=== PATIENT | male | born 1960 | race Caucasian/White ===

== ENCOUNTER 2017-05-11 12:53 | Emergency (ER) | payer BC, OTHER ==
[~2017-05-11] VITALS: Ht 180.3 cm; Wt 110.0 kg
[~2017-05-11 12:53] MED LIST: ATV/1 PO; HYDR50TA3 PO; LISI10TA PO; MCRK20 PO; OMEP20CA9 PO
[2017-05-11 12:54] VITALS: TEMP 36.3; Ht 180.3 cm; Wt 110.0 kg
[2017-05-11] MEDS ORDERED: VLT/75 PO (13:39)
--- NOTE | 2017-05-11 14:03 | DIAGNOSTIC IMAGING REPORT ---
RIGHT KNEE 3 VIEWS CLINICAL HISTORY: Right knee pain. Fall. FINDINGS: AP, crosstable lateral, and sunrise views of the right knee are obtained. No prior studies are available for comparison at the time of dictation. The skeletal structures are well mineralized. No fracture is seen. The joint spaces of the knee are well-maintained. Mild degenerative beaking is noted in the tibial spine. A small joint effusion is identified. Prepatellar soft tissue swelling is observed. IMPRESSION: Prepatellar soft tissue swelling and joint effusion. No right knee fracture is seen. Electronically signed by: Kevin Quinones M.D. 05/11/2017 2:02 PM Dictated Date/Time: 05/11/2017 2:01 PM
[2017-05-11 15:14] VITALS: BP 156/77; PULSE 78; O2SAT 99
--- NOTE | 2017-05-11 20:19 | EMERGENCY ROOM VISIT NOTE ---
ED Visit Note First contact with patient: 13:00 Chief Complaint: I fell and hurt my right knee. History of Present Illness: Mr. Anglin is a 56-year-old white male who ambulates into the ED complaining of right knee pain. Historically patient reports he has bilateral knee arthritis and receives injections of steroids into his knees for his arthritis. His last injection was approximately [address] Meier. Patient reports he was walking down carpeted steps yesterday and tripped. When he tripped his knee was hyperflexed and he fell to the floor. He reports in the process he did feel a popping sensation. He reports he was able to get himself up and go to work yesterday. He reports before the fall there was no lightheadedness or dizziness, the time of the fall he did not strike his head and since the injury he has not had any signs of head injury. Currently he is complaining of pain over the medial and anterior aspect of the right knee. He describes it as a constant throbbing sensation that is intermittently sharp. He rates his discomfort 9/10. The pain is nonradiating. The pain worsens with ambulation, flexion beyond 80 and palpation over the anterior medial aspects of the knee. He has not identified any alleviating factors related to the pain. He has taken his prescribed diclofenac without relief of his discomfort. Associated with his pain patient does report he feels when he flexes his knee he feels a clicking sensation. He denies any associated symptoms including back pain, hip pain, thigh pain, lower leg pain, ankle or foot pain, leg weakness/numbness/tingling, knee locking. Review of Systems: As noted above in history of present illness. Past Medical History: Hypertension, bronchitis, status post cervical and lumbar back surgery. Current Medications: Lisinopril, Ativan, hydrochlorothiazide, Prilosec, potassium chloride, diclofenac. Allergies to Medications: Patient denies. Social History: Patient is currently employed; he feels safe in his home environment; he admits to tobacco use and denies alcohol use. Physical Examination: Vital Signs: Date Time Temp Pulse Resp B/P (MAP) Pulse Ox O2 Delivery O2 Flow Rate FiO2 05/11/17 15:14 78 18 156/77 99 05/11/17 15:12 66 18 147/87 96 Room Air 05/11/17 12:54 36.3 73 18 172/82 99 Room Air GENERAL: 56-year-old male in mild to moderate distress due to pain, nontoxic- appearing, afebrile and hemodynamically stable. NEUROLOGICAL: Awake, alert and oriented to person, place and time. Answering questions appropriately and following commands. SKIN: Warm, dry and pink. No soft tissue trauma noted. BACK: No tenderness over the bony lumbar spine. No CVA tenderness. RIGHT LOWER EXTREMITY: No gross bony deformity. No shortening or malrotation. No tenderness over the hip, thigh, lower leg, ankle or foot. Mild tenderness over the prepatellar area predominately over the anterior tibia with moderate swelling. There is also mild tenderness over the medial joint line with no severe swelling in this area negative bounce test. Negative patellar apprehension test. Susana test negative. No collateral or cruciate ligament laxity. Decreased range of motion to only approximately 80 of flexion but he does able to reach full extension and hyperextension. I attempted to evaluate the meniscus but with his swelling and pain was unsuccessful. With the niece stabilize she has full range of motion in the level of the ankles and toes. Distal neurovascular statuses are intact and equal bilaterally. ED Course: Patient is assessed as noted above. Patient's medication list was reviewed. Patient is given ice for pain and comfort; he refused pain medications. Right Knee X-Rays: Were read by myself and the radiologist showing no acute fractures or dislocations. Mild degenerative beaking of the tibial spine, small joint effusion and prepatellar soft tissue swelling was noted. Patient was placed in a knee immobilizer; he reports he had nonweightbearing crutches at home. Patient was educated about today's findings and instructed on his treatment plan ; he verbalizes understanding and agreement with this plan. Clinical Impression: Right knee pain. Status post fall. Patient's blood pressure: Elevated. Blood pressure disposition: Situational. Disposition: Patient discharged home in stable condition; prior to departure he was reassessed and subjectively reported he was feeling much better and rated his discomfort 3/10. Plan: Comfort measures were discussed with the patient including rest, ice, splint and crutch use and a sliding pain medication scale of ibuprofen, acetaminophen and [place]; his name was checked in the state database and no red flags were noted and he was given appropriate narcotic precautions. Patient is encouraged to follow-up with his orthopedist Dr. Meier for definitive care and treatment. Patient is encouraged return ED for worsening/uncontrolled pain, uncontrolled swelling, leg weakness/numbness/tingling or any new/concerning symptoms.
== END 2017-05-11 15:16 | disposition home or self-care (01) ==
LOC: C.EDB 12:54 → C.EDD 15:16
DX: M25.561 Pain in right knee (principal); W01.0XXA Fall on same level from slipping, tripping and stumbling without subsequent striking against object, initial encounter; Y92.9 Unspecified place or not applicable; I10 Essential (primary) hypertension; Z79.899 Other long term (current) drug therapy; Z72.0 Tobacco use

== ENCOUNTER → 2017-09-06 | Outpatient (CLI) | payer BC ==
[~2017-09-06] MED LIST changes: +VLT/75 PO
== END | disposition home or self-care (01) ==
LOC: C.LABPBG 15:50
PROVIDERS: ATTEND Urology
DX: N40.1 Benign prostatic hyperplasia with lower urinary tract symptoms (principal); R97.20 Elevated prostate specific antigen [PSA]

== ENCOUNTER 2020-09-19 17:16 | Inpatient (IN) ==
[2020-09-19] MEDS ORDERED: SODIUM CHLORIDE 0.9% 1000ML 1,000 ML IV ONE (18:48)
[2020-09-19] MEDS ORDERED: ACETAMINOPHEN 1,000 MG/100 ML VIAL IV STA (18:48)
[2020-09-19] MEDS ORDERED: ONDANSETRON INJ 2 MG/ML 2 ML VIAL IV STA (18:48)
--- NOTE | 2020-09-19 18:53 | Emergency Department Note ---
History of Present Illness General Chief complaint: Shortness of Breath/Dyspnea Stated complaint: COV + ON 09/16, DYSPNEA Time Seen by Provider: 09/19/20 18:21 Source: patient Mode of arrival: ambulatory Limitations: no limitations History of Present Illness Provider complaint: COVID, multiple symptoms Onset (ago): day(s) Maximum Pain Intensity: 3 Relieved By: + none Exacerbated By: + none Associated symptoms: + cough, + fever/chills, + headaches, + loss of appetite, + malaise, + nausea/vomiting, + shortness of breath and + weakness Treatments prior to arrival: none This is a 59-year-old male presents the emergency department with multiple complaints and recent outpatient positive Covid swab. Patient states symptoms started over the weekend, he was swabbed on Wednesday, and was called that his test was positive on Wednesday. Patient states he has headaches, myalgias, arthralgias, cough, diarrhea, shortness of breath, mild chest pain. Patient states he is taking Tylenol. States he is drinking plenty of water though he has no appetite. Patient also states he has had loss of taste and smell. Patient states he is very fatigued. Uncertain where he acquired it. Patient states after his PCP contacted him that he was positive, he was scheduled to have monoclonal antibody infusion tomorrow here at the hospital. Patient states he is a "patient partner smoker". Pt seen during a time of high acuity and national emergency pandemic while wearing PPE. Swabbed Wednesday, positive Wednesday Home Medications Medication Instructions Recorded Confirmed Type cetirizine 10 mg capsule 10 mg PO DAILY PRN #90 cap 11/09/19 09/19/20 Rx tramadol 50 - 100 mg PO Q6H PRN #20 tab 04/10/20 09/19/20 Rx dutasteride 0.5 mg capsule 0.5 mg PO DAILY #90 cap 08/26/20 09/19/20 Rx amlodipine 5 mg tablet 5 mg PO QAM #90 tab 08/27/20 09/19/20 Rx lisinopril 10 mg tablet 10 mg PO QAM #90 tab 08/27/20 09/19/20 Rx omeprazole 20 mg capsule,delayed 20 mg PO QAM #90 cap 08/27/20 09/19/20 Rx release lorazepam 1 mg tablet 1 mg PO HS #7 tab 09/02/20 09/19/20 Rx amoxicillin 875 mg-potassium 1 tab PO Q12H 10 Days #20 tab 09/16/20 09/19/20 Rx clavulanate 125 mg tablet Allergies Allergy/AdvReac Type Severity Reaction Status Date / Time No Known Allergies Allergy Verified 09/19/20 19:20 Past Med/Surg History Medical History (Updated 09/21/20 @ 20:12 by Yulissa Roberson DO) Allergic rhinitis Anxiety Degenerative disc disease GERD (gastroesophageal reflux disease) History of gout History of prostate cancer under surveillance-dr. ludwig HTN (hypertension) Obesity Surgical History H/O umbilical hernia repair Umbilical hernia repair. Dr. Baxter 05-29-19 History of cervical spinal surgery "ROM WNL" per RN phone interview History of colonoscopy History of laminectomy LUMBAR History of prostate biopsy X 2 History of right inguinal hernia repair History of tonsillectomy Family History Father Prostate cancer Cancer Hypertension Mother Hypertension Family hx of colon cancer Family history of diabetes mellitus Denies family history of Ovarian cancer Myocardial infarction Breast cancer Colorectal cancer Social History Smoking Status: Current some day smoker Age Started Using Tobacco: 25; Cigarettes Per Day: OCCASIONAL CIGARETTES; Second Hand Exposure: No; Hx Alcohol Use: Yes Alcohol type: beer Hx Substance Use: No Preferred Language: Chadian Communication Ability: Effective Visual Impairment: No Limitations Hearing Ability: Normal Chip Bin Operator Required: No Beliefs That Will Affect Care: None marital status: Current Living Situation: Spouse current occupational status: employed current occupation: [employer] Feels Safe at Home: Yes Childhood Exposure to Second-Hand Smoke: No Dental Care, Regularly: Yes Physical Activity Frequency: 3-4 Times per Week Seatbelt Use: always Sunscreen Use: Yes Assistive Devices: Oxygen - Continuous Review of Systems See HPI for pertinent positives & negatives. and A total of 10 systems reviewed and were otherwise negative Physical Exam Vital Signs Vital Signs - 24 hr 09/19/20 17:27 Temperature 36.8 C Temperature Source Temporal Artery Scan Pulse Rate 92 H Pulse Rhythm Regular Respiratory Rate 23 Respiratory Effort / Characteristics Short of Breath Blood Pressure 151/98 H Blood Pressure Mean 115 Pulse Oximetry 97 Oxygen Delivery Method Room Air Sepsis Recent Fever Within 48 Hours No Sepsis New/Unexplained Change in Mental Status No Sepsis Action Taken by Nursing No Action Required GENERAL: alert, ill appearing, well nourished, no distress, non-toxic, obese EYE EXAM: normal conjunctiva, PERRL and EOM's grossly intact OROPHARYNX: no exudate, no erythema, lips, buccal mucosa, and tongue normal and mucous membranes are moist NECK: supple, no nuchal rigidity, no adenopathy, non-tender LUNGS: Clear but diminished to auscultation. Normal chest wall mechanics, no w/r/r HEART: no murmurs, S1 normal and S2 normal ABDOMEN: abdomen soft, non-tender, normo-active bowel sounds, no masses, no rebound or guarding. BACK: Back is symmetrical on inspection and there is no deformity, no midline tenderness, no CVA tenderness. SKIN: no rashes and no bruising UPPER EXTREMITIES: upper extremities are grossly normal. FROM, nml pulses b/l. LOWER EXTREMITIES: No pitting edema. FROM, nml pulses b/l. NEURO EXAM: Normal sensorium, cranial nerves II-XII grossly intact, normal speech, no gross weakness of arms, no gross weakness of legs. Gross sensation intact. Course Course 2045: Pt receiving monoclonal antibody infusion. 2134: Pt was noted to be mildly hypoxic at rest and placed on NC. Nursing staff noted that while on NC at rest, he will periodically desat. 2235: Discussed all results with patient. Discussed with him concern over hypoxia at rest. Other VS stable. 2335: Discussed with Dr. Romero. Administered Medications Acetaminophen (Acetaminophen 325 Mg Tab) 650 mg PO Q4H PRN PRN Reason: Pain or Fever Stop: 10/20/20 02:00 Last Admin: 09/20/20 05:38 Dose: 650 mg Documented by: [id number] Amlodipine Besylate (Amlodipine Besylate 5 Mg Tab) 5 mg PO QAM GERRY Stop: 10/20/20 08:59 Last Admin: 09/21/20 08:34 Dose: 5 mg Documented by: [id number] Admin: 09/20/20 08:19 Dose: 5 mg Documented by: [id number] Enoxaparin Sodium (Enoxaparin 80 Mg/0.8 Ml Syr) 70 mg SQ Q12 GERRY Stop: 10/20/20 08:59 Last Admin: 09/21/20 08:33 Dose: 70 mg Documented by: [id number] Admin: 09/20/20 21:01 Dose: 70 mg Documented by: [id number] Admin: 09/20/20 08:21 Dose: 70 mg Documented by: [id number] Azithromycin 500 mg/ Dextrose 255 mls @ 125 mls/hr IV DAILY GERRY Stop: 09/27/20 08:59 Last Infusion: 09/21/20 10:37 Dose: 0 mls/hr Documented by: [id number] Admin: 09/21/20 08:32 Dose: 125 mls/hr Documented by: [id number] Infusion: 09/20/20 10:30 Dose: 0 mls/hr Documented by: [id number] Admin: 09/20/20 08:22 Dose: 125 mls/hr Documented by: [id number] Dexamethasone 6 mg/ Syringe 1.5 mls @ 1 mls/min IV Q12H GERRY Stop: 10/20/20 11:59 Last Admin: 09/21/20 11:41 Dose: 1 mls/min Documented by: [id number] Admin: 09/20/20 23:52 Dose: 1 mls/min Documented by: [id number] Admin: 09/20/20 11:36 Dose: 1 mls/min Documented by: [id number] Remdesivir 100 mg/ Sodium (Chloride) 250 mls @ 250 mls/hr IV Q24H GERRY; Protocol Stop: 09/24/20 12:59 Last Infusion: 09/21/20 12:50 Dose: 0 mls/hr Documented by: [id number] Admin: 09/21/20 11:41 Dose: 250 mls/hr Documented by: [id number] Lisinopril (Lisinopril 10 Mg Tab) 10 mg PO QAM GERRY Stop: 10/20/20 08:59 Last Admin: 09/21/20 08:37 Dose: 10 mg Documented by: [id number] Admin: 09/20/20 08:17 Dose: 10 mg Documented by: [id number] Miscellaneous (Avodart~Order Awaiting Action) 1 ea N/A QS GERRY Stop: 10/20/20 07:59 Last Admin: 09/21/20 15:21 Dose: Not Given Documented by: [id number] Admin: 09/21/20 08:38 Dose: Not Given Documented by: [id number] Admin: 09/20/20 23:13 Dose: Not Given Documented by: [id number] Admin: 09/20/20 15:54 Dose: Not Given Documented by: [id number] Admin: 09/20/20 08:25 Dose: Not Given Documented by: [id number] Pantoprazole Sodium (Pantoprazole 40 Mg Tab) [facility] [place] Stop: 10/20/20 08:59 Last Admin: 09/21/20 08:34 Dose: 40 mg Documented by: [id number] Admin: 09/20/20 08:17 Dose: 40 mg Documented by: [id number] Sodium Chloride (Sodium Chloride 0.9% 10ml Flush) 30 ml IV Q24H [facility] Stop: 09/24/20 12:01 Last Admin: 09/21/20 11:42 Dose: 30 ml Documented by: [id number] Vitamin D (Cholecalciferol 1,000 Units 25 Mcg Tab) 5,000 units PO [facility] Stop: 10/20/20 08:59 Last Admin: 09/21/20 08:35 Dose: 5,000 units Documented by: [id number] Admin: 09/20/20 08:18 Dose: 5,000 units Documented by: [id number] Zinc Sulfate (Zinc Sulfate 220 Mg Capsule) 220 mg PO [facility] Stop: 10/20/20 08:59 Last Admin: 09/21/20 08:34 Dose: 220 mg Documented by: [id number] Admin: 09/20/20 08:17 Dose: 220 mg Documented by: [id number] Discontinued Medications Albuterol (Albut/Ipratrop 3mg/0.5mg Neb 3 Ml Vial) 3 ml NEB NOW STA Stop: 09/19/20 20:57 Last Admin: 09/19/20 21:23 Dose: 3 ml Documented by: [id number] Albuterol (Albuterol Hfa 8 Gm Inhaler) 2 puffs INH QIDR [facility] Stop: 10/20/20 06:59 Last Admin: 09/20/20 07:57 Dose: 2 puffs Documented by: [id number] Dexamethasone (Dexamethasone Sod Inj 4 Mg/Ml Vial) 6 mg IV NOW STA Stop: 09/19/20 23:03 Last Admin: 09/20/20 00:05 Dose: 6 mg Documented by: [id number] Diphenhydramine HCl (Diphenhydramine 50 Mg/Ml Vial) 50 mg IV NOW STA Stop: 09/20/20 00:28 Last Admin: 09/20/20 00:47 Dose: 50 mg Documented by: [id number] Sodium Chloride (Nss 1000ml) 1,000 mls @ 999 mls/hr IV .Q1H1M ONE Stop: 09/19/20 19:48 Last Infusion: 09/19/20 20:51 Dose: 0 mls/hr Documented by: [id number] Admin: 09/19/20 19:48 Dose: 999 mls/hr Documented by: [id number] Acetaminophen (Ofirmev) 1,000 mg in 100 mls @ 400 mls/hr IV NOW STA Stop: 09/19/20 19:02 Last Infusion: 09/19/20 20:37 Dose: 0 mls/hr Documented by: [id number] Admin: 09/19/20 19:48 Dose: 400 mls/hr Documented by: [id number] Casirivimab 1,200 mg/Imdevimab 1,200 mg/ Sodium Chloride 120 mls @ 310 mls/hr IV ONCE ONE; Protocol Stop: 09/19/20 20:48 Last Infusion: 09/19/20 21:13 Dose: 0 mls/hr Documented by: [id number] Admin: 09/19/20 20:37 Dose: 310 mls/hr Documented by: [id number] Famotidine (Pepcid 20mg Iv Push) 20 mg in 5 mls @ 2.5 mls/min IV NOW STA Stop: 09/20/20 00:28 Last Admin: 09/20/20 00:47 Dose: 2.5 mls/min Documented by: [id number] Dexamethasone 4 mg/ Syringe 1 mls @ 1 mls/min IV NOW STA Stop: 09/20/20 00:41 Last Admin: 09/20/20 00:53 Dose: 1 mls/min Documented by: [id number] Potassium Chloride/Sodium Chloride (Normal Saline W/20 Meq Kcl) 20 meq in 1,000 mls @ 100 mls/hr IV .Q10H GRERY Stop: 10/20/20 02:00 Last Infusion: 09/20/20 19:53 Dose: 0 mls/hr Documented by: [id number] Admin: 09/20/20 11:36 Dose: 100 mls/hr Documented by: [id number] Infusion: 09/20/20 11:36 Dose: 100 mls/hr Documented by: [id number] Infusion: 09/20/20 05:00 Dose: 100 mls/hr Documented by: [id number] Infusion: 09/20/20 02:42 Dose: 0 mls/hr Documented by: [id number] Admin: 09/20/20 02:41 Dose: 100 mls/hr Documented by: [id number] Remdesivir 200 mg/ Sodium (Chloride) 250 mls @ 125 mls/hr IV ONE ONE; Protocol Stop: 09/20/20 04:29 Last Infusion: 09/20/20 04:41 Dose: 0 mls/hr Documented by: [id number] Admin: 09/20/20 02:41 Dose: 125 mls/hr Documented by: [id number] Lorazepam (Lorazepam 1 Mg Tab) 1 mg PO HS GERRY Stop: 10/20/20 20:59 Last Admin: 09/20/20 21:08 Dose: 1 mg Documented by: [id number] Lorazepam (Lorazepam 1 Mg Tab) 1 mg PO NOW STA Stop: 09/20/20 11:22 Last Admin: 09/20/20 11:35 Dose: 1 mg Documented by: [id number] Miscellaneous (Stat Iv) 1 ea N/A NOW STA Stop: 09/19/20 19:56 Last Admin: 09/19/20 20:40 Dose: 1 ea Documented by: [id number] Ondansetron HCl (Ondansetron Inj 2 Mg/Ml 2 Ml Vial) 4 mg IV NOW STA Stop: 09/19/20 18:49 Last Admin: 09/19/20 19:48 Dose: 4 mg Documented by: [id number] Sodium Chloride (Sodium Chloride 0.9% 10ml Flush) 30 ml IV ONCE ONE Stop: 09/19/20 20:26 Last Admin: 09/19/20 21:13 Dose: 30 ml Documented by: [id number] Medical Decision Making Differential Diagnosis Differential Diagnosis includes but is not limited to dehydration, stroke, anemia, hypoglycemia, hyponatremia, hypernatremia, urinary tract infection, pneumonia, bronchitis, sepsis, gastroenteritis, additional abdominal pathology, metabolic abnormalities and infections. Medical Records Attestation: I reviewed the patient's medical records. Home Medications Current Medication List: was personally reviewed by me Laboratory Data Attestation: I reviewed the patient's lab results. Result diagrams: 09/21/20 07:26 09/21/20 07:26 Lab Results 09/19/20 09/19/20 09/19/20 Range/Units 19:47 19:47 19:47 WBC 3.57 L (4.8-10.8) K/uL RBC 4.44 L (4.7-6.1) M/uL Hgb 14.1 (14.0-18.0) g/dL Hct 40.8 L (42-52) % MCV 91.9 (80-100) fL MCH 31.8 (25-34) pg MCHC 34.6 (32-36) g/dL RDW Std Deviation 39.5 (36.4-46.3) fL RDW Coeff of Nayely 11.6 (11.5-14.5) % Plt Count 124 L (130-400) K/uL MPV 10.6 H (7.4-10.4) fL Immature Gran % (Auto) 0.0 % Neut % (Auto) 52.6 % Lymph % (Auto) 38.1 % Gage % (Auto) 9.0 % Eos % (Auto) 0.0 % Baso % (Auto) 0.3 % Neut # (Auto) 1.88 (1.4-6.5) K/uL Lymph # (Auto) 1.36 (1.2-3.4) K/uL Gage # (Auto) 0.32 (0.11-0.59) K/uL Eos # (Auto) 0.00 (0-0.5) K/uL Baso # (Auto) 0.01 (0-0.2) K/uL Immature Gran # (Auto) 0.00 (0.00-0.02) K/uL PT 9.9 (9.0-12.0) Seconds INR 1.0 (0.9-1.1) Sodium 135 L (136-145) mmol/L Potassium 3.9 (3.5-5.1) mmol/L Chloride 101 (98-107) mmol/L Carbon Dioxide 26 (21-32) mmol/L Anion Gap 8.0 (3-11) BUN 11 (7-18) mg/dl Creatinine 1.10 (0.6-1.4) mg/dl Est Cr Clr Drug Dosing 98.1 ml/min Est GFR ( Amer) 84.7 Est GFR (Non-Af Amer) 73.1 BUN/Creatinine Ratio 10.1 (10-20) Glucose 86 (70-99) mg/dl Calcium 8.4 L (8.5-10.1) mg/dl Magnesium 1.9 (1.8-2.4) mg/dl Total Bilirubin 0.3 (0.2-1) mg/dl AST 46 H (15-37) U/L ALT 46 (12-78) U/L Alkaline Phosphatase 60 (45-117) U/L Troponin I < 0.015 (0-0.045) ng/ml NT-Pro-B Natriuret Pep 26 (0-900) pg/ml Total Protein 7.4 (6.4-8.2) gm/dl Albumin 3.5 (3.4-5.0) gm/dl Globulin 3.9 (2.5-4.0) gm/dl Albumin/Globulin Ratio 0.9 (0.9-2) Lipase 155 (73-393) U/L TSH 2.420 (0.300-4.500) uIu/ml Imaging Data My Impression: X-ray: I interpreted the following studies. Chest: A single view study of the chest was reviewed and was negative for cardiomegaly, focal infiltrate, effusion, pulmonary edema, or wide mediastinum. Slightly increased interstitial markings b/l. ECG Data Attestation: I personally reviewed and interpreted this ECG as follows: Indication: + SOB/dyspnea Rate (beats per minute): 76 Rhythm: + normal sinus ECG Intervals/blocks: + Normal QRS and + Normal QT ECG [place]: + Normal ECG ST segments: + Normal ST segments MDM Narrative This is a 59 yo male with known COVID who presents with multiple complaints and feeling worse over the last several days. Patient was scheduled for monoclonal antibodies by his PCP for tomorrow but with his symptoms progressing, he presented to the ER for treatment and possible early infusion. VS stable. Pt initially not hypoxic. Labs sent, cxr performed. Leukopenia noted, consistent with COVID, no other significant lab abnormalities. Monoclonal antibodies were ordered and infused. During infusion it was noted that pt was intermittently becoming hypoxic. Pt placed on NC. Pt denied SOB at rest, but did note it with exertion. Due to persistent hypoxia at rest despite neb treatment due to smoking hx, discussed with pt inpatient monitoring and oxygen. He verbalized understanding. Discussed with hospitalist. Pt then developed rigors. Unclear if rigors from mounting fevers with COVID or a reaction to the infusion. Hospitalist aware. VS otherwise stable, no evidence of anaphylaxis. An order was placed for continuous cardiac monitoring. The monitor shows a rate of _92_ with _normal sinus__ rhythm. Patient has no family history of asthma. Patient was first seen and observation began at 1821 and was necessary in order to determine evaluate sx of COVID and treat symptoms. Upon re-evaluation, 6 hours of observation revealed that the patient could be admitted. Discharge from observation 0000 at and patient to be admitted. Impression & Plan Hypoxia, COVID-19, Leukopenia, Tobacco abuse Discharge Plan Visit Data Chief Complaint: Shortness of Breath/Dyspnea Stated Complaint: COV + ON 09/16, DYSPNEA ED Provider: Yulissa Roberson Discharge Problem: Hypoxia, COVID-19, Leukopenia, Tobacco abuse Patient Disposition: Admitted As Inpatient Discharge Instructions Interventions: ED Discharge Assessment Last Done: 09/20/20 02:08 Discharge Problem: Leukopenia Qualifiers: Leukopenia type: unspecified Qualified Code(s): D72.819 - Decreased white blood cell count, unspecified
--- NOTE | 2020-09-19 19:18 | XRay Report ---
XR chest 1V portable HISTORY: 59 years-old Male chest pain . Atypical chest pain COMPARISON: Chest radiographs 06/25/2014 TECHNIQUE: Portable AP view the chest FINDINGS: Cardiac silhouette is upper limits of normal in size. No pneumothorax or pleural effusion. No overt e amanda. Ill-defined interstitial opacities of the right midlung. Degenerative changes of the shoulders and spine. IMPRESSION: Ill-defined interstitial densities of the right midlung may be secondary to summation den sity versus a nonspecific pneumonitis. ACT 112: Negative or not required by law. The above report was generated using voice recognition software. It may contain grammatical, syntax o r spelling errors. Electronically signed by: Kal Jensen M.D. 09/19/2020 7:16 PM
[2020-09-19] MEDS ORDERED: ACETAMINOPHEN 325 MG TAB PO PRN (19:55)
[2020-09-19] MEDS ORDERED: ONDANSETRON INJ 2 MG/ML 2 ML VIAL IV PRN (19:55)
[2020-09-19] MEDS ORDERED: methylPREDNISolone 125 MG/2 ML VIAL IV PRN (19:55)
[2020-09-19] MEDS ORDERED: EPINEPHrine INJ 1 MG/ML AMP IM PRN (19:55)
[2020-09-19] MEDS ORDERED: STAT IV STA (19:55)
[2020-09-19] MEDS ORDERED: diphenhydrAMINE 50 MG/ML VIAL IV PRN (19:55)
[2020-09-19 20:03] LABS: Basophils # (auto) 0.01 K/uL (0-0.2); Basophils % (auto) 0.3 %; Hematocrit (blood only) 40.8 % (42-52); Hemoglobin 14.1 g/dL (14.0-18.0); Lymphocytes # (auto) 1.36 K/uL (1.2-3.4); Lymphocytes % (auto) 38.1 %; Mean Corpuscular Hemoglobin 31.8 pg (25-34); Mean Corpuscular Hgb Conc 34.6 g/dL (32-36); Mean Corpuscular Volume 91.9 fL (80-100); Mean Platelet Volume 10.6 fL (7.4-10.4); Monocytes # (auto) 0.32 K/uL (0.11-0.59); Neutrophils # (auto) 1.88 K/uL (1.4-6.5); Neutrophils % (auto) 52.6 %; Platelet Count 124 K/uL (130-400); RDW Coefficient of Variation 11.6 % (11.5-14.5); RDW Standard Deviation 39.5 fL (36.4-46.3); Red Blood Count 4.44 M/uL (4.7-6.1); White Blood Count 3.57 K/uL (4.8-10.8)
[2020-09-19 20:15] LABS: Prothrombin Time 9.9 Seconds (9.0-12.0)
[2020-09-19] MEDS ORDERED: SODIUM CHLORIDE 0.9% 10ML FLUSH IV ONE (20:25)
[2020-09-19] MEDS ORDERED: 0.2 MICRON FILTER SET 1 EA IV ONE (20:25)
[2020-09-19] MEDS ORDERED: [UNRECOGNIZED DRUG - OTHER] IV ONE (20:25)
[2020-09-19] MEDS ORDERED: ALBUT/IPRATROP 3MG/0.5MG NEB 3 ML VIAL NEB STA (20:56)
[2020-09-19] MEDS ORDERED: DEXAMETHASONE SOD INJ 4 MG/ML VIAL IV STA (23:02)
[2020-09-20] LABS: Alanine Aminotransferase 46 U/L (12-78); Albumin Level 3.5 gm/dl (3.4-5.0); Aspartate Aminotransferase 46 U/L (15-37); BUN Creatinine Ratio 10.1 (10-20); Blood Urea Nitrogen 11 mg/dl (7-18); Calcium 8.4 mg/dl (8.5-10.1); Carbon Dioxide 26 mmol/L (21-32); Chloride 101 mmol/L (98-107); Creatinine Clr Calc Pharmacy 98.1 ml/min; Est GFR (African American) 84.7; Est GFR (Non-African American) 73.1; Glucose 86 mg/dl (70-99); Lipase 155 U/L (73-393); Magnesium 1.9 mg/dl (1.8-2.4); Potassium 3.9 mmol/L (3.5-5.1); Sodium 135 mmol/L (136-145)
[2020-09-20 00:11] LABS: Albumin Globulin Ratio 0.9 (0.9-2); Alkaline Phosphatase 60 U/L (45-117); Bilirubin,Total 0.3 mg/dl (0.2-1); Globulin 3.9 gm/dl (2.5-4.0); NT Pro B Type Natriuretic Pept 26 pg/ml (0-900); Total Protein 7.4 gm/dl (6.4-8.2); Troponin I < 0.015 ng/ml (0-0.045)
[2020-09-20] MEDS ORDERED: diphenhydrAMINE 50 MG/ML VIAL IV STA (00:27)
[2020-09-20] MEDS ORDERED: FAMOTIDINE 20MG IV PUSH 20 MG/5 ML SYR IV STA (00:27)
[2020-09-20] MEDS ORDERED: dexAMETHasone 4 MG in SYRINGE 0 ML IV STA (00:40)
--- NOTE | 2020-09-20 00:43 | History & Physical Report ---
Date of Service September 20, 2020 Assessment & Plan (1) Pneumonia due to COVID-19 virus: Pneumonia due to COVID-19 virus with hypoxia- Admit to monitored bed Patient did receive Regeneron antibody earlier in the ED, and there was concern that his rigors may be an allergic reaction. He was given Decadron 10 mg IV, Benadryl 50 mg IV and famotidine 20 mg IV with improvement in rigors. Admit on: Decadron 6 mg IV every 12 hours. Remdesivir IV per protocol Albuterol HFA 2 puffs 4 times daily, and every 2 hours as needed Duonebs every 2 hours when necessary. Azithromycin 500 mg IV daily Zinc sulfate turn 20 mg p.o. every morning Vitamin D 5000 international units p.o. daily Present on Admission?: Yes (2) Hypoxia: See above Present on Admission?: Yes (3) HTN, goal below 140/90: Continue amlodipine and lisinopril with hold parameters Present on Admission?: Yes (4) Anxiety: Continue lorazepam at bedtime Present on Admission?: Yes (5) Acid reflux: Continue omeprazole/pantoprazole Present on Admission?: Yes (6) Neoplasm of prostate, malignant: Prostate malignancy with lower urinary tract symptoms- Continue dutasteride 0.5 daily Present on Admission?: Yes History of Present Illness Chief Complaint: The patient presents to the emergency department with complaint of 5 to 6 days of worsening cough, shortness of breath, dyspnea on exertion, generalized malaise, and loss of taste and smell. Primary Care Provider: Janice Wiseman MD The patient is a 59-year-old male with a past medical history including hypertension, allergy, GERD, BPH with LUTS, insomnia, and morbid obesity. His PCP ordered a COVID-19 test as an outpatient, that was positive on 09/16/2020. His symptoms have continued to worsen symptoms the test was performed, and he presents to the ED for further assessment this evening. Of note, he did receive Regeneron antibody IV treatment in the ED this evening. As the evening progressed in ED, the patient developed rigors and some worsening shortness of breath. Allergies Allergy/AdvReac Type Severity Reaction Status Date / Time No Known Allergies Allergy Verified 09/19/20 19:20 Home Medications Medication Instructions Recorded Confirmed Type cetirizine 10 mg capsule 10 mg PO DAILY PRN #90 cap 11/09/19 09/19/20 Rx tramadol 50 - 100 mg PO Q6H PRN #20 tab 04/10/20 09/19/20 Rx dutasteride 0.5 mg capsule 0.5 mg PO DAILY #90 cap 08/26/20 09/19/20 Rx amlodipine 5 mg tablet 5 mg PO QAM #90 tab 08/27/20 09/19/20 Rx lisinopril 10 mg tablet 10 mg PO QAM #90 tab 08/27/20 09/19/20 Rx omeprazole 20 mg capsule,delayed 20 mg PO QAM #90 cap 08/27/20 09/19/20 Rx release lorazepam 1 mg tablet 1 mg PO HS #7 tab 09/02/20 09/19/20 Rx amoxicillin 875 mg-potassium 1 tab PO Q12H 10 Days #20 tab 09/16/20 09/19/20 Rx clavulanate 125 mg tablet Past Med/Surg History Medical History (Updated 09/20/20 @ 02:09 by Jamar Romero MD) Allergic rhinitis Anxiety Degenerative disc disease GERD (gastroesophageal reflux disease) History of gout History of prostate cancer under surveillance-dr. ludwig HTN (hypertension) Obesity Surgical History H/O umbilical hernia repair Umbilical hernia repair. Dr. Baxter 05-29-19 History of cervical spinal surgery "ROM WNL" per RN phone interview History of colonoscopy History of laminectomy LUMBAR History of prostate biopsy X 2 History of right inguinal hernia repair History of tonsillectomy Family History Father Prostate cancer Cancer Hypertension Mother Hypertension Family hx of colon cancer Family history of diabetes mellitus Denies family history of Ovarian cancer Myocardial infarction Breast cancer Colorectal cancer Social History Smoking Status: Current some day smoker Age Started Using Tobacco: 25; Cigarettes Per Day: OCCASIONAL CIGARETTES; Second Hand Exposure: No; Hx Alcohol Use: Yes Alcohol type: beer Hx Substance Use: No Preferred Language: Welsh Communication Ability: Effective Visual Impairment: No Limitations Hearing Ability: Normal Employee Benefits Coordinator Required: No Beliefs That Will Affect Care: None marital status: Current Living Situation: Spouse current occupational status: employed 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 Feels Safe at Home: Yes Childhood Exposure to Second-Hand Smoke: No Dental Care, Regularly: Yes Physical Activity Frequency: 3-4 Times per Week Seatbelt Use: always Sunscreen Use: Yes Assistive Devices: None Review of Systems Review of Systems: The patient denies chest pain, palpitations, lower extremity swelling, sore throat, chills, sweats, nausea, vomiting, diarrhea , constipation, abdominal pain, pelvic pain, blood in urine or stool, dysuria, urinary frequency or urgency, lightheadedness, dizziness, headache, memory loss, loss of consciousness, rash, abnormal bruising or bleeding, imbalance, focal or generalized weakness, numbness or tingling in arms or legs, back or neck pain, or night sweats. The review of systems is otherwise negative other than for that already noted above, and at least 10 systems have been reviewed. Physical Exam Physical Exam: The patient is awake, alert and oriented 3, well developed and well nourished, normocephalic and atraumatic, lying in bed, has severe shakes/rigors and is short of breath. HEENT--PERRL, EOMI, mucous membranes and oropharynx dry. Neck--supple. No JVD. No bruits. Thyroid normal, trachea midline, no adenopathy. Heart--normal S1 and S2. No murmurs, rubs or gallops. Lungs--coarse breath sounds and wheezes bilaterally. Mild respiratory distress, no accessory muscle use. Abdomen--normal bowel sounds and soft. Nontender. Nondistended. Morbidly obese Extremities--no cyanosis or clubbing. No edema. Dermatologic--normal skin turgor, normal color, no abnormal lymph nodes, no rash. Neurologic--cranial nerves II through XII grossly intact. Rheumatologic--limited exam due to rigors Psychiatric--normal affect. Results & Data Results & Data ([facility]) Vital Signs (Past 12 Hours) Vital Signs Temp Pulse Pulse Resp BP BP Pulse Ox 09/20/20 00:01 92 09/20/20 00:00 79 24 142/101 H 100 09/19/20 23:45 76 23 147/80 H 95 09/19/20 23:31 74 17 93 09/19/20 23:30 78 19 141/75 H 92 09/19/20 23:15 78 17 134/81 92 09/19/20 23:01 85 20 93 09/19/20 23:00 79 21 141/92 H 93 09/19/20 22:45 82 20 134/73 92 09/19/20 22:31 78 28 H 90 09/19/20 22:30 76 22 136/79 94 09/19/20 22:15 79 19 144/73 H 94 09/19/20 22:01 79 15 92 09/19/20 22:00 80 17 127/74 92 09/19/20 21:56 88 L 09/19/20 21:46 80 20 90 09/19/20 21:45 79 23 135/73 09/19/20 21:31 83 16 92 09/19/20 21:30 82 24 125/82 91 09/19/20 21:23 78 19 94 09/19/20 21:16 88 23 117/67 93 09/19/20 21:10 98.1 F 77 21 126/80 95 09/19/20 21:01 75 21 95 09/19/20 21:00 76 22 126/80 97 09/19/20 20:55 99.9 F H 74 77 19 135/76 132/80 94 09/19/20 20:43 77 22 97 09/19/20 20:42 78 21 132/80 96 09/19/20 20:40 99.9 F H 85 20 132/80 98 09/19/20 20:31 74 21 91 09/19/20 20:30 75 21 130/85 90 09/19/20 20:01 75 20 93 09/19/20 20:00 79 20 134/95 93 09/19/20 19:58 99.0 F 86 22 134/95 94 09/19/20 19:54 79 22 141/82 H 94 09/19/20 19:39 81 23 09/19/20 17:27 98.2 F 92 H 23 151/98 H 97 Laboratory Results Laboratory Results WBC 3.57 K/uL (4.8-10.8) L 09/19/20 19:47 RBC 4.44 M/uL (4.7-6.1) L 09/19/20 19:47 Hgb 14.1 g/dL (14.0-18.0) 09/19/20 19:47 Hct 40.8 % (42-52) L 09/19/20 19:47 MCV 91.9 fL (80-100) 09/19/20 19:47 MCH 31.8 pg (25-34) 09/19/20 19:47 MCHC 34.6 g/dL (32-36) 09/19/20 19:47 RDW Std Deviation 39.5 fL (36.4-46.3) 09/19/20 19:47 RDW Coeff of Nayely 11.6 % (11.5-14.5) 09/19/20 19:47 Plt Count 124 K/uL (130-400) L 09/19/20 19:47 MPV 10.6 fL (7.4-10.4) H 09/19/20 19:47 Immature Gran % (Auto) 0.0 % 09/19/20 19:47 Neut % (Auto) 52.6 % 09/19/20 19:47 Lymph % (Auto) 38.1 % 09/19/20 19:47 [place] % (Auto) 9.0 % 09/19/20 19:47 Eos % (Auto) 0.0 % 09/19/20 19:47 Baso % (Auto) 0.3 % 09/19/20:47 Neut # (Auto) 1.88 K/uL (1.4-6.5) 09/19/20 19:47 Lymph # (Auto) 1.36 K/uL (1.2-3.4) 09/19/20 19:47 [place] # (Auto) 0.32 K/uL (0.11-0.59) 09/19/20 19:47 Eos # (Auto) 0.00 K/uL (0-0.5) 09/19/20 19:47 Baso # (Auto) 0.01 K/uL (0-0.2) 09/19/20: Immature Gran # (Auto) 0.00 K/uL (0.00-0.02) 09/19/20 19:47 PT 9.9 Seconds (9.0-12.0) 09/19/20 19:47 INR 1.0 (0.9-1.1) 09/19/20 19:47 Sodium 135 mmol/L (136-145) L 09/19/20 19:47 Potassium 3.9 mmol/L (3.5-5.1) 09/19/20 19:47 Chloride 101 mmol/L (98-107) 09/19/20 19:47 Carbon Dioxide 26 mmol/L (21-32) 09/19/20 19:47 Anion Gap 8.0 (3-11) 09/19/20 19:47 BUN 11 mg/dl (7-18) 09/19/20 19:47 Creatinine 1.10 mg/dl (0.6-1.4) 09/19/20 19:47 Est Cr Clr Drug Dosing 98.1 ml/min 09/19/20 19:47 Est GFR ( Amer) 84.7 09/19/20 19:47 Est GFR (Non-Af Amer) 73.1 09/19/20 19:47 BUN/Creatinine Ratio 10.1 (10-20) 09/19/20 19:47 Glucose 86 mg/dl (70-99) 09/19/20 19:47 Calcium 8.4 mg/dl (8.5-10.1) L 09/19/20 19:47 Magnesium 1.9 mg/dl (1.8-2.4) 09/19/20 19:47 Total Bilirubin 0.3 mg/dl (0.2-1) 09/19/20 19:47 AST 46 U/L (15-37) H 09/19/20 19:47 ALT 46 U/L (12-78) 09/19/20 19:47 Alkaline Phosphatase 60 U/L (45-117) 09/19/20 19:47 Troponin I < 0.015 ng/ml (0-0.045) 09/19/20 19:47 NT-Pro-B Natriuret Pep 26 pg/ml (0-900) 09/19/20 19:47 Total Protein 7.4 gm/dl (6.4-8.2) 09/19/20 19:47 Albumin 3.5 gm/dl (3.4-5.0) 09/19/20 19:47 Globulin 3.9 gm/dl (2.5-4.0) 09/19/20 19:47 Albumin/Globulin Ratio 0.9 (0.9-2) 09/19/20 19:47 Lipase 155 U/L (73-393) 09/19/20 19:47 TSH 2.420 uIu/ml (0.300-4.500) 09/19/20 19:47 Impressions Chest X-Ray 09/19/20 18:48 XR chest 1V portable HISTORY: 59 years-old Male chest pain . Atypical chest pain COMPARISON: Chest radiographs 06/25/2014 TECHNIQUE: Portable AP view the chest FINDINGS: Cardiac silhouette is upper limits of normal in size. No pneumothorax or pleural effusion. No overt edema. Ill-defined interstitial opacities of the right midlung. Degenerative changes of the shoulders and spine. IMPRESSION: Ill-defined interstitial densities of the right midlung may be secondary to summation density versus a nonspecific pneumonitis. ACT 112: Negative or not required by law. The above report was generated using voice recognition software. It may contain grammatical, syntax or spelling errors. Electronically signed by: Kal Jensen M.D. 09/19/2020 7:16 PM Code Status & VTE Plan Code Status Full code VTE Prophylaxis Plan VTE Prophylaxis will be ordered: Yes PG Care Time/CCT Total # of Minutes Spent Total Time Spent with Patient: Total time spent is greater than 50% in coordination of care (as documented) at patient's floor/unit and/or counseling patient: Coding Level of Care Code 07100 Initial Inpt Care Lvl 3 Diagnoses Pneumonia due to COVID-19 virus U07.1; J12.82 Hypoxia R09.02 HTN, goal below 140/90 I10 Anxiety F41.9 Acid reflux K21.9 Neoplasm of prostate, malignant C61
[2020-09-20] MEDS ORDERED: ACETAMINOPHEN 325 MG TAB PO PRN (02:01)
[2020-09-20] MEDS ORDERED: traMADol HCL 50 MG TABLET PO PRN (02:01)
[2020-09-20] MEDS ORDERED: NITROGLYCERIN SL 0.4 MG/TAB TAB SL PRN (02:01)
[2020-09-20] MEDS ORDERED: ONDANSETRON INJ 2 MG/ML 2 ML VIAL IV PRN (02:01)
[2020-09-20] MEDS ORDERED: ENOXAPARIN 0.5 MG/KG SQ SCH (02:01)
[2020-09-20] MEDS ORDERED: ALBUT/IPRATROP 3MG/0.5MG NEB 3 ML VIAL NEB PRN (02:01)
[2020-09-20] MEDS ORDERED: REMDESIVIR 200 MG in SODIUM CHLORIDE 0.9% 210 ML IV ONE (02:30)
[2020-09-20] MEDS: NSS + 20MEQ KCL 20 MEQ/1,000 ML BAG IV SCH ×2 (02:41→11:36)
[2020-09-20 06:12] LABS: Basophils # (auto) 0.01 K/uL (0-0.2); Basophils % (auto) 0.3 %; Hematocrit (blood only) 37.5 % (42-52); Hemoglobin 12.9 g/dL (14.0-18.0); Lymphocytes # (auto) 0.52 K/uL (1.2-3.4); Lymphocytes % (auto) 16.1 %; Mean Corpuscular Hemoglobin 31.4 pg (25-34); Mean Corpuscular Hgb Conc 34.4 g/dL (32-36); Mean Corpuscular Volume 91.2 fL (80-100); Mean Platelet Volume 10.7 fL (7.4-10.4); Monocytes # (auto) 0.06 K/uL (0.11-0.59); Monocytes % (auto) 1.9 %; Neutrophils # (auto) 2.64 K/uL (1.4-6.5); Neutrophils % (auto) 81.7 %; Platelet Count 118 K/uL (130-400); RDW Coefficient of Variation 11.6 % (11.5-14.5); RDW Standard Deviation 39.1 fL (36.4-46.3); Red Blood Count 4.11 M/uL (4.7-6.1); White Blood Count 3.23 K/uL (4.8-10.8)
[2020-09-20 06:40] LABS: RBC Morphology Unremarkable
[2020-09-20 07:00] LABS: Albumin Level 2.9 gm/dl (3.4-5.0); BUN Creatinine Ratio 12.1 (10-20); Calcium 7.6 mg/dl (8.5-10.1); Creatinine Clr Calc Pharmacy 116.3 ml/min; Est GFR (African American) 103.8; Est GFR (Non-African American) 89.5; Potassium 4.1 mmol/L (3.5-5.1)
[2020-09-20] MEDS ORDERED: ALBUTEROL HFA 8 GM INHALER INH SCH (07:00)
[2020-09-20 07:03] LABS: Albumin Globulin Ratio 0.7 (0.9-2); Bilirubin,Total 0.3 mg/dl (0.2-1); Total Protein 6.9 gm/dl (6.4-8.2)
[2020-09-20] MEDS: PANTOprazole 40 MG TAB PO SCH (08:17)
[2020-09-20] MEDS: lisinopril 10 MG TAB PO SCH (08:17)
[2020-09-20] MEDS: ZINC SULFATE 220 MG CAPSULE PO SCH (08:17)
[2020-09-20] MEDS: CHOLECALCIFEROL 1,000 UNITS 25 MCG TAB PO SCH (08:18)
[2020-09-20] MEDS: amLODIPine BESYLATE 5 MG TAB PO SCH (08:19)
[2020-09-20] MEDS: ENOXAPARIN 80 MG/0.8 ML SYR SQ SCH ×2 (08:21→21:01)
[2020-09-20] MEDS: AZITHROMYCIN 500 MG in DEXTROSE 5% 250 ML IV SCH (08:22)
[2020-09-20] MEDS: AVODART~ORDER AWAITING ACTION SCH ×3 (08:25→23:13)
[2020-09-20] MEDS ORDERED: ALBUTEROL HFA 8 GM INHALER INH PRN (09:44)
[2020-09-20] MEDS ORDERED: LORazepam 1 MG TAB PO STA (11:21)
--- NOTE | 2020-09-20 11:33 | History & Physical Bridge Note ---
Date of Service September 20, 2020 History & Physical Bridge Note I have examined the patient, reviewed the History & Physical and in the interval since the performance of the History & Physical I have noted the following changes of clinical significance: patient says he got sick last Wednesday, 7 days ago he tested positive on 09/16, started to get worse the past few days started to feel short of breath and get weaker the past 2-3 days had diarrhea once or twice, has a dry cough, had fevers all week he is on 4L right now, he says he is having a panic attack and needs his Ativan, takes 1mg PO PRN at home for panic symptoms ordered him a one time dose now will use Codeine for his cough told him to lay on his side or lay prone as much as he can, try to eat continue standard treatment with Dexamethasone, Remdesivir, Zithromax he received Casirivimab/Imdevimab in the ED
[2020-09-20] MEDS: dexAMETHasone 6 MG in SYRINGE 0 ML IV SCH ×2 (11:36→23:52)
[2020-09-20] MEDS ORDERED: LORazepam 1 MG TAB PO SCH (21:00)
--- NOTE | 2020-09-21 06:03 | Electrocardiogram Report ---
Test Reason : Blood Pressure : / mmHG Vent. Rate : 076 BPM Atrial Rate : 076 BPM P-R Int : 174 ms QRS Dur : 074 ms QT Int : 362 ms P-R-T Axes : 017 025 019 degrees QTc Int : 407 ms Normal sinus rhythm Low voltage QRS Borderline ECG When compared with ECG of 23-MAY-2019 14:06, No significant change was found Confirmed by Jaime Rosado ([id number]) on 09/21/2020 6:03:23 AM Referred By: REFERRED SELF Confirmed By:Jaime Rosado
[2020-09-21 08:00] LABS: Hematocrit (blood only) 39.2 % (42-52); Hemoglobin 13.6 g/dL (14.0-18.0); Lymphocytes # (auto) 0.98 K/uL (1.2-3.4); Lymphocytes % (auto) 22.9 %; Mean Corpuscular Hemoglobin 31.5 pg (25-34); Mean Corpuscular Hgb Conc 34.7 g/dL (32-36); Mean Corpuscular Volume 90.7 fL (80-100); Mean Platelet Volume 10.8 fL (7.4-10.4); Monocytes # (auto) 0.29 K/uL (0.11-0.59); Monocytes % (auto) 6.8 %; Neutrophils # (auto) 3.01 K/uL (1.4-6.5); Neutrophils % (auto) 70.3 %; Platelet Count 144 K/uL (130-400); RDW Coefficient of Variation 11.5 % (11.5-14.5); RDW Standard Deviation 38.8 fL (36.4-46.3); Red Blood Count 4.32 M/uL (4.7-6.1); White Blood Count 4.28 K/uL (4.8-10.8)
[2020-09-21] MEDS: AZITHROMYCIN 500 MG in DEXTROSE 5% 250 ML IV SCH (08:32)
[2020-09-21] MEDS: ENOXAPARIN 80 MG/0.8 ML SYR SQ SCH ×2 (08:33→20:25)
[2020-09-21] MEDS: PANTOprazole 40 MG TAB PO SCH (08:34)
[2020-09-21] MEDS: ZINC SULFATE 220 MG CAPSULE PO SCH (08:34)
[2020-09-21] MEDS: amLODIPine BESYLATE 5 MG TAB PO SCH (08:34)
[2020-09-21] MEDS: CHOLECALCIFEROL 1,000 UNITS 25 MCG TAB PO SCH (08:35)
[2020-09-21 08:37] LABS: Albumin Level 2.9 gm/dl (3.4-5.0); BUN Creatinine Ratio 17.9 (10-20); Calcium 8.5 mg/dl (8.5-10.1); Est GFR (African American) 111.6; Est GFR (Non-African American) 96.3; Magnesium 2.2 mg/dl (1.8-2.4); Potassium 4.3 mmol/L (3.5-5.1)
[2020-09-21] MEDS: lisinopril 10 MG TAB PO SCH (08:37)
[2020-09-21] MEDS: AVODART~ORDER AWAITING ACTION SCH ×2 (08:38→15:21)
[2020-09-21 08:39] LABS: Albumin Globulin Ratio 0.8 (0.9-2); Bilirubin,Total 0.2 mg/dl (0.2-1); Globulin 3.7 gm/dl (2.5-4.0); Total Protein 6.6 gm/dl (6.4-8.2)
[2020-09-21] MEDS ORDERED: LORazepam 1 MG TAB PO PRN (10:00)
--- NOTE | 2020-09-21 10:00 | Hospitalist Progress Note ---
Date of Service September 21, 2020 Assessment & Plan (1) Pneumonia due to COVID-19 virus: Pneumonia due to COVID-19 virus with hypoxia- Patient did receive Regeneron antibody in the ED, this had been arranged by PCP Decadron 6 mg IV every 12 hours, day 2 Remdesivir IV, day 2 Albuterol HFA 2 puffs 4 times daily, and every 2 hours as needed Duonebs every 2 hours when necessary. Azithromycin 500 mg IV daily Zinc sulfate turn 20 mg p.o. every morning Vitamin D 5000 international units p.o. daily down to room air today, if still on room air tomorrow morning will discharge home (2) Hypoxia: See above (3) HTN, goal below 140/90: Continue amlodipine and lisinopril with hold parameters (4) Anxiety: Continue lorazepam, can have BID PRN for panic attacks slept well last night (5) Acid reflux: Continue omeprazole/pantoprazole (6) Neoplasm of prostate, malignant: Prostate malignancy with lower urinary tract symptoms- Continue dutasteride 0.5 daily Admission and Anticipated Discharge Date Admission Date: September 20, 2020 Subjective patient doing well today, he is down to room air this morning he has an intermittent cough, yellow sputum, no blood denies dyspnea and dyspnea on exertion, no fever no panic attacks, took his Ativan last night, slept well eating well, no nausea, no diarrhea labs show WBC 4k, Hb 13, Cr 0.8, K normal, magnesium normal Review of Systems Review of Systems: All systems reviewed & are unremarkable except as noted in Subjective Physical Exam Constitutional: WD/WN, vitals as above no acute distress Neck: trachea midline, no thyromegaly Respiratory: normal respiratory effort, lungs clear to auscultation Cardiovascular: RRR, no murmur, no edema Gastrointestinal (Abdomen): normal bowel sounds, soft, nontender, no hepatosplenomegaly Musculoskeletal: no cyanosis or clubbing, extremities motor strength 5/5 Skin: no rashes, warm and dry Neurologic: patellar DTR's 2+ bilat, sensation intact and PERRL, EOMI, accommodation nl, no face palsy, no dysarthria Psychiatric: A+Ox3, euthymic affect Lymphatic: no cervical or axillary lymphadenopathy Results & Data Results & Data ([facility]) Vital Signs (Past 12 Hours) Vital Signs Temp Pulse Pulse Resp BP Pulse Ox Pulse Ox 09/21/20 08:35 36.8 C 57 L 16 126/76 97 09/21/20 07:43 64 09/21/20 03:10 36.8 C 65 19 107/65 96 09/21/20 02:01 95 09/21/20 00:26 69 09/20/20 23:04 37.2 C 76 20 116/70 94 Laboratory Results Laboratory Results - last 24 hr 09/21/20 09/21/20 07:26 07:26 WBC 4.28 L RBC 4.32 L Hgb 13.6 L Hct 39.2 L MCV 90.7 MCH 31.5 MCHC 34.7 RDW Std Deviation 38.8 RDW Coeff of Nayely 11.5 Plt Count 144 MPV 10.8 H Immature Gran % (Auto) 0.0 Neut % (Auto) 70.3 Lymph % (Auto) 22.9 [place] % (Auto) 6.8 Eos % (Auto) 0.0 Baso % (Auto) 0.0 Neut # (Auto) 3.01 Lymph # (Auto) 0.98 L [place] # (Auto) 0.29 Eos # (Auto) 0.00 Baso # (Auto) 0.00 Immature Gran # (Auto) 0.00 Sodium 139 Potassium 4.3 Chloride 107 Carbon Dioxide 27 Anion Gap 5.0 BUN 15 Creatinine 0.83 Est Cr Clr Drug Dosing 128.0 Est GFR ( Amer) 111.6 Est GFR (Non-Af Amer) 96.3 BUN/Creatinine Ratio 17.9 Glucose 141 H Calcium 8.5 Magnesium 2.2 Total Bilirubin 0.2 AST 46 H ALT 40 Alkaline Phosphatase 47 Total Protein 6.6 Albumin 2.9 L Globulin 3.7 Albumin/Globulin Ratio 0.8 L Medications Administered Current Inpatient Medications Acetaminophen (Acetaminophen 325 Mg Tab) 650 mg PO Q4H PRN PRN Reason: Pain or Fever Stop: 10/20/20 02:00 Last Admin: 09/20/20 05:38 Dose: 650 mg Documented by: Albuterol (Albut/Ipratrop 3mg/0.5mg Neb 3 Ml Vial) 3 ml NEB Q2H PRN PRN Reason: dyspnea Stop: 10/20/20 02:00 Albuterol (Albuterol Hfa 8 Gm Inhaler) 2 puffs INH QIDR PRN PRN Reason: Shortness Of Breath Or Wheezing Stop: 10/20/20 06:59 Amlodipine Besylate (Amlodipine Besylate 5 Mg Tab) [facility] [place]: 10/20/20 08:59 Last Admin: 09/21/20 08:34 Dose: 5 mg Documented by: Enoxaparin Sodium (Enoxaparin 80 Mg/0.8 Ml Syr) 70 mg SQ Q12 [facility] Stop: 10/20/20 08:59 Last Admin: 09/21/20 08:33 Dose: 70 mg Documented by: Azithromycin 500 mg/ Dextrose 255 mls @ 125 mls/hr IV DAILY [facility] Stop: 09/27/20 08:59 Last Admin: 09/21/20 08:32 Dose: 125 mls/hr Documented by: Dexamethasone 6 mg/ Syringe 1.5 mls @ 1 mls/min IV Q12H [facility] Stop: 10/20/20 11:59 Last Admin: 09/20/20 23:52 Dose: 1 mls/min Documented by: Remdesivir 100 mg/ Sodium (Chloride) 250 mls @ 250 mls/hr IV Q24H [facility]; Protocol Stop: 09/24/20 12:59 Lisinopril (Lisinopril 10 Mg Tab) [facility] [place]: 10/20/20 08:59 Last Admin: 09/21/20 08:37 Dose: 10 mg Documented by: Lorazepam (Lorazepam 1 Mg Tab) 1 mg PO BID PRN PRN Reason: Anxiety Stop: 10/21/20 20:59 Miscellaneous (Avodart~Order Awaiting Action) 1 ea N/A QS [facility] Stop: 10/20/20 07:59 Last Admin: 09/21/20 08:38 Dose: Not Given Documented by: Nitroglycerin (Nitroglycerin Sl 0.4 Mg/Tab Tab) 0.4 mg SL UD PRN PRN Reason: Chest Pain Stop: 10/20/20 02:00 Ondansetron HCl (Ondansetron Inj 2 Mg/Ml 2 Ml Vial) 4 mg IV Q6H PRN PRN Reason: Nausea Stop: 10/20/20 02:00 Pantoprazole Sodium (Pantoprazole 40 Mg Tab) 40 mg PO [facility] [place] Stop: 10/20/20 08:59 Last Admin: 09/21/20 08:34 Dose: 40 mg Documented by: Sodium Chloride (Sodium Chloride 0.9% 10ml Flush) 30 ml IV Q24H [facility] Stop: 09/24/20 12:01 Tramadol HCl (Tramadol Hcl 50 Mg Tablet) 50 mg PO Q6H PRN PRN Reason: Moderate Pain Stop: 10/20/20 02:00 Vitamin D (Cholecalciferol 1,000 Units 25 Mcg Tab) 5,000 units PO [facility] [place] Stop: 10/20/20 08:59 Last Admin: 09/21/20 08:35 Dose: 5,000 units Documented by: Zinc Sulfate (Zinc Sulfate 220 Mg Capsule) 220 [place] [facility] [place]: 10/20/20 08:59 Last Admin: 09/21/20 08:34 Dose: 220 mg Documented by: PG Care Time/CCT Total # of Minutes Spent Total Time Spent with Patient: Total time spent is greater than 50% in coordination of care (as documented) at patient's floor/unit and/or counseling patient: Coding Level of Care Code 89941 Subseq Hosp Care Lvl 2 Diagnoses Pneumonia due to COVID-19 virus U07.1; J12.82 Hypoxia R09.02 HTN, goal below 140/90 I10 Anxiety F41.9 Acid reflux K21.9 Neoplasm of prostate, malignant C61
[2020-09-21] MEDS: dexAMETHasone 6 MG in SYRINGE 0 ML IV SCH (11:41)
[2020-09-21] MEDS ORDERED: REMDESIVIR 100 MG in SODIUM CHLORIDE 0.9% 230 ML IV SCH (12:00)
[2020-09-21] MEDS ORDERED: SODIUM CHLORIDE 0.9% 10ML FLUSH IV SCH (12:00)
[2020-09-22] MEDS: dexAMETHasone 6 MG in SYRINGE 0 ML IV SCH (01:00)
[2020-09-22] MEDS: AVODART~ORDER AWAITING ACTION SCH ×2 (01:50→08:38)
[2020-09-22 06:50] LABS: Basophils # (auto) 0.01 K/uL (0-0.2); Basophils % (auto) 0.2 %; Hematocrit (blood only) 39.4 % (42-52); Hemoglobin 13.5 g/dL (14.0-18.0); Immature Granulocytes # (auto) 0.01 K/uL (0.00-0.02); Immature Granulocytes % (auto) 0.2 %; Lymphocytes # (auto) 1.15 K/uL (1.2-3.4); Lymphocytes % (auto) 20.8 %; Mean Corpuscular Hgb Conc 34.3 g/dL (32-36); Mean Corpuscular Volume 90.4 fL (80-100); Mean Platelet Volume 11.4 fL (7.4-10.4); Monocytes # (auto) 0.45 K/uL (0.11-0.59); Monocytes % (auto) 8.1 %; Neutrophils # (auto) 3.91 K/uL (1.4-6.5); Neutrophils % (auto) 70.7 %; Platelet Count 152 K/uL (130-400); RDW Coefficient of Variation 11.5 % (11.5-14.5); Red Blood Count 4.36 M/uL (4.7-6.1); White Blood Count 5.53 K/uL (4.8-10.8)
[2020-09-22 07:08] LABS: Albumin Level 2.8 gm/dl (3.4-5.0); Calcium 8.1 mg/dl (8.5-10.1); Creatinine Clr Calc Pharmacy 153.7 ml/min; Est GFR (African American) 120.4; Est GFR (Non-African American) 103.9; Magnesium 2.3 mg/dl (1.8-2.4); Potassium 4.4 mmol/L (3.5-5.1)
[2020-09-22 07:11] LABS: Albumin Globulin Ratio 0.7 (0.9-2); Bilirubin,Total 0.2 mg/dl (0.2-1); Globulin 3.8 gm/dl (2.5-4.0); Total Protein 6.6 gm/dl (6.4-8.2)
[2020-09-22] MEDS: lisinopril 10 MG TAB PO SCH (09:06)
[2020-09-22] MEDS: amLODIPine BESYLATE 5 MG TAB PO SCH (09:07)
[2020-09-22] MEDS: CHOLECALCIFEROL 1,000 UNITS 25 MCG TAB PO SCH (09:07)
[2020-09-22] MEDS: ENOXAPARIN 80 MG/0.8 ML SYR SQ SCH (09:07)
[2020-09-22] MEDS: ZINC SULFATE 220 MG CAPSULE PO SCH (09:07)
[2020-09-22] MEDS: PANTOprazole 40 MG TAB PO SCH (09:07)
[2020-09-22] MEDS: AZITHROMYCIN 500 MG in DEXTROSE 5% 250 ML IV SCH (09:07)
--- NOTE | 2020-09-22 09:35 | Discharge Summary ---
Date of Service September 22, 2020 Admission HPI Per Admitting Provider The patient is a 59-year-old male with a past medical history including hypertension, allergy, GERD, BPH with LUTS, insomnia, and morbid obesity. His PCP ordered a COVID-19 test as an outpatient, that was positive on 09/16/2020. His symptoms have continued to worsen symptoms the test was performed, and he presents to the ED for further assessment this evening. Of note, he did receive Regeneron antibody IV treatment in the ED this evening. As the evening progressed in ED, the patient developed rigors and some worsening shortness of breath. Principal Diagnosis COVID 19 pneumonia with acute hypoxia Discharge Exam Constitutional WD/WN, vitals as above no acute distress Neck trachea midline, no thyromegaly Respiratory normal respiratory effort, lungs clear to auscultation Cardiovascular RRR, no murmur, no edema Gastrointestinal (Abdomen) normal bowel sounds, soft, nontender, no hepatosplenomegaly Musculoskeletal no cyanosis or clubbing, extremities motor strength 5/5 Skin no rashes, warm and dry Neurologic patellar DTR's 2+ bilat, sensation intact and PERRL, EOMI, accommodation nl, no face palsy, no dysarthria Psychiatric A+Ox3, euthymic affect Lymphatic no cervical or axillary lymphadenopathy Discharge Data Allergies Allergy/AdvReac Type Severity Reaction Status Date / Time No Known Allergies Allergy Verified 09/19/20 19:20 Consultations 09/20/20 00:07 ED Decision to Admit Stat Hospital Course (1) Pneumonia due to COVID-19 virus: Pneumonia due to COVID-19 virus with hypoxia- Patient did receive Regeneron antibody in the ED, this had been arranged by PCP Decadron 6 mg IV every 12 hours, day 3 will prescribe 7 more days at home Remdesivir IV, received two doses, does not need to stay for third dose as he is 96% on room air Albuterol HFA 2 puffs 4 times daily, and every 2 hours as needed Duonebs every 2 hours when necessary. Azithromycin 500 mg IV daily x 3 doses, complete two more doses at home Zinc sulfate 220 mg p.o. every morning Vitamin D 5000 international units p.o. daily down to room air for over 24 hours, no distress, minimal cough instructed to stay well hydrated, well nourished, get rest stay in isolation until 09/26/20 may return to work on 09/30/20 (2) Hypoxia: See above (3) HTN, goal below 140/90: Continue amlodipine and lisinopril with hold parameters (4) Anxiety: Continue lorazepam, can have BID PRN for panic attacks slept well last night (5) Acid reflux: Continue omeprazole/pantoprazole (6) Neoplasm of prostate, malignant: Prostate malignancy with lower urinary tract symptoms- Continue dutasteride 0.5 daily Total Time Total Time Spent Total Time Spent (In Minutes): 32 Total Time Includes: Examination of the Patient, Discharge Planning and Medication Reconciliation Discharge Plan Discharge Items Patient Disposition: Home - Self-Care Reason For Visit: COVID-19 PNEUMONIA WITH HYPOXIA Discharge Diagnosis: COVID 19 pneumonia with acute hypoxic respiratory failure Condition on Discharge: Good Activity: Resume your previous activity Driving/Machine Use: No limitations Weightbearing: Full weightbearing Non-emergency contact: Primary Care Provider Call non-emergency contact if: you have any medication questions and your symptoms worsen Follow-up/Referrals: Janice Wiseman MD [Primary Care Provider] - Diet: Regular Addtl Attending Provider Instructions: Medications: - DEXAMETHASONE: 6mg daily for 7 more days - ZITHROMAX: 500mg daily for 2 more days - ZINC: 220mg daily for 7-10 days for immune support, purchase over the counter COVID 19 pneumonia, acute hypoxic respiratory failure much improved, on room air for over 24 hours, no distress, coughing less treated with Regeneron in the ED, this is antibody to COVID 19 treated with dexamethasone and Remdesivir while admitted, no need for further Remdesivir as you are on room air complete course of dexamethasone at home stay well nourished, well hydrated, get rest recommend that you stay in isolation 10 days from positive test on 09/16 recommend that you stay off work this entire week, can return on 09/30/20 Pending Studies at Discharge: No Stand-Alone Forms: My [facility], Work/School Release (Inpt), Smoking Cessation Medications and DC Order Prescriptions: New dexamethasone 4 mg tablet 6 mg PO DAILY 7 Days Qty: 11 RF: 0 azithromycin 500 mg tablet 500 mg PO DAILY 2 Days Qty: 2 RF: 0 zinc sulfate [Orazinc] 50 mg zinc (220 mg) Capsule 220 mg PO QAM 1 Days Qty: 5 RF: 0 Continued Zyrtec 10 mg capsule 10 mg PO DAILY PRN (Reason: Allergy Symptoms) Qty: 90 RF: 1 dutasteride 0.5 mg capsule 0.5 mg PO DAILY Qty: 90 RF: 3 amlodipine 5 mg tablet 5 mg PO QAM Qty: 90 RF: 1 lisinopril 10 mg tablet 10 mg PO QAM Qty: 90 RF: 1 omeprazole 20 mg capsule,delayed release(DR/EC) 20 mg PO QAM Qty: 90 RF: 1 lorazepam 1 mg tablet 1 mg PO HS Qty: 7 RF: 0 tramadol 50 mg tablet 50 - 100 mg PO Q6H PRN (Reason: pain) Qty: 20 RF: 0 Discontinued amoxicillin-pot clavulanate [Augmentin] 875-125 mg tablet 1 tab PO Q12H 10 Days Qty: 20 RF: 0 Discharge Orders: Discharge Order (Routine); Ordered 09/22/20 Ordered By: Spenser Feldman Admission Data Admit Date/Time: 09/20/20 00:41 Attending Provider: Spenser Feldman Admit Provider: Jamar Romero Primary Care Provider: Janice Wiseman Other Providers: Jamar Romero Coding Level of Care Code D/C Day Management >30 mins Diagnoses Pneumonia due to COVID-19 virus U07.1; J12.82 Hypoxia R09.02 HTN, goal below 140/90 I10 Anxiety F41.9 Acid reflux K21.9 Neoplasm of prostate, malignant C61
== END 2020-09-22 10:18 | disposition home or self-care (01) | DRG 177 ==
LOC: ED 17:16 → SUATTDRO 09-20 00:41 → 2S 09-20 00:41